=== PATIENT | female | born 2000 | race Two or more races ===

== ENCOUNTER 2024-08-21 15:25 | Emergency (ER) | payer MEDICAID, OTHER ==
[~2024-08-21] VITALS: Ht 162.6 cm; Wt 90.9 kg
[2024-08-21 15:43] VITALS: BP 140/76; PULSE 96; RESP 20; O2SAT 100
== END 2024-08-21 15:43 | disposition left against medical advice (07) ==
LOC: ER 15:28
DX: K08.89 Other specified disorders of teeth and supporting structures (principal); Z53.21 Procedure and treatment not carried out due to patient leaving prior to being seen by health care provider